=== PATIENT | female | born 1985 | race Caucasian/White ===

== ENCOUNTER 2018-12-01 20:44 | Emergency (ER) | payer MEDICAID ==
[~2018-12-01] VITALS: Ht 165.1 cm; Wt 91.0 kg
[~2018-12-01 20:44] MED LIST: depo
[2018-12-02 02:14] LABS: CLARITY URINE TURBID (CLEAR); COLOR URINE YELLOW (YELLOW); KETONES URINE NEGATIVE (NEGATIVE); LEUKOCYTE ESTERASE URINE 3+ (NEGATIVE); NITRITE URINE NEGATIVE (NEGATIVE); OCCULT BLOOD URINE 1+ (NEGATIVE); PROTEIN URINE TRACE (NEGATIVE); SPECIFIC GRAVITY URINE 1.021 (1.005-1.030); UROBILINOGEN URINE 0.2 E.U./dL (0.2-1.0)
[2018-12-02] MEDS: ONDANSETRON 4MG ODT PO ONE (05:44)
[2018-12-02] MEDS: METRONIDAZOLE 500MG TABLET PO ONE (05:44)
[2018-12-02 05:47] VITALS: BP 117/68
== END 2018-12-02 05:48 | disposition home or self-care (01) ==
LOC: ER 20:44
DX: N12 Tubulo-interstitial nephritis, not specified as acute or chronic (principal); A59.9 Trichomoniasis, unspecified
CPT/HCPCS: 81003; 81025; 87077; 87086; 99283; Q0162

== ENCOUNTER 2019-07-14 21:37 | Emergency (ER) | payer MEDICAID ==
[~2019-07-14] VITALS: Ht 162.6 cm; Wt 82.0 kg
[2019-07-14] MEDS ORDERED: ACETAMINOPHEN 500MG TABLET PO ONE (23:30)
[2019-07-14] MEDS ORDERED: ASPIRIN 81MG TABLET PO ONE (23:30)
[2019-07-15 00:09] LABS: BASOPHILS % 0.8 % (0.0-2.0); EOSINOPHILS % 0.4 % (0.0-5.0); HEMATOCRIT. 40.8 % (36.0-48.0); HEMOGLOBIN. 13.6 g/dL (12.0-16.0); LYMPHOCYTES % 25.2 % (20.0-50.0); MEAN CORPUSCULAR HEMOGLOBIN 27.7 pg (28.0-32.0); MEAN CORPUSCULAR VOLUME 83.4 fL (81.0-99.0); MEAN PLATELET VOLUME 7.2 fl (7.4-10.4); NEUTROPHILS % 65.6 % (40.0-76.0); PLATELET 340 x1000/uL (130-400); RED BLOOD CELL COUNT 4.89 mill/uL (4.2-5.4); RED CELL DISTRIBUTION WIDTH 13.9 % (11.6-14.6)
[2019-07-15 00:15] LABS: CHLORIDE 108 mEq/L (98-107)
[2019-07-15 01:39] VITALS: BP 99/53
== END 2019-07-15 01:40 | disposition home or self-care (01) ==
LOC: ER 21:37
DX: R07.89 Other chest pain (principal)
CPT/HCPCS: 36415; 71045; 80053; 84484; 85025; 93005; 99284; Z7610